=== PATIENT | female | born 1990 | race American Indian/Alaskan Native ===

== ENCOUNTER 2016-07-13 03:15 | Outpatient (CLI) | payer MEDICAID ==
[2016-07-13] MEDS ORDERED: LACTATED RINGERS 1,000 ML IV SCH (03:30)
[2016-07-13] MEDS ORDERED: LACTATED RINGERS 1,000 ML ONE (03:30)
[2016-07-13 05:24] VITALS: BP 113/72
== END 2016-07-13 07:19 | disposition home or self-care (01) ==
LOC: TRG 03:15
PROVIDERS: ATTEND Obstetrics & Gynecology Gynecology
DX: O47.02 False labor before 37 completed weeks of gestation, second trimester (principal); Z3A.27 27 weeks gestation of pregnancy
CPT/HCPCS: 96360; J7120